=== PATIENT | female | born 2000 | race African-American/Black ===

== ENCOUNTER 2024-09-21 16:33 | Emergency (ER) | payer OTHER ==
[~2024-09-21] VITALS: Ht 162.6 cm; Wt 120.0 kg
[2024-09-21 16:49] VITALS: O2SAT 98
[2024-09-21 21:03] LABS: PLATELET 291 x1000/uL (130-400); RED BLOOD CELL COUNT 4.48 mill/uL (4.2-5.4); RED CELL DISTRIBUTION WIDTH 12.6 % (11.6-14.6)
[2024-09-21 21:20] LABS: CREATININE 0.9 mg/dL (0.6-1.0); UREA NITROGEN BLOOD 11 mg/dL (9-23)
[2024-09-21 21:22] LABS: TROPONIN I HIGH SENSITIVITY < 4 ng/L (3.0-34)
[2024-09-21 21:51] VITALS: BP 114/81; PULSE 70; RESP 15; TEMP 36.7; O2SAT 99
== END 2024-09-21 21:52 | disposition home or self-care (01) ==
LOC: ER 16:33
DX: R00.2 Palpitations (principal); R06.02 Shortness of breath
CPT/HCPCS: 36415; 71045; 80048; 83880; 84484; 85027; 93005; 99285